=== PATIENT | female | born 1935 | race Caucasian/White ===

== ENCOUNTER 2023-08-04 08:56 | Inpatient (IN) ==
[2023-08-04] MEDS ORDERED: IOPAMIDOL 100 ML BOTTLE IV ONE (08:57)
[2023-08-04] MEDS: ADENOSINE 3 MG/ML VIAL IV ONE (09:24)
[2023-08-04 09:35] LABS: Basophils # (Auto) 0.07 K/mcL (0.00-0.30); Basophils % (Auto) 0.8 % (0.0-2.0); Eosinophils # (Auto) 0.09 K/mcL (0.00-0.70); Eosinophils % (Auto) 1.1 % (0.0-7.0); Hematocrit 49.1 % (34.1-44.9); Hemoglobin 15.7 g/dL (11.2-15.7); Lymphocytes # (Auto) 3.04 K/mcL (1.50-4.80); Lymphocytes % (Auto) 36.5 % (15.5-49.0); Mean Cell Volume 89.6 fL (80.0-100.0); Monocytes # (Auto) 0.43 K/mcL (0.10-0.90); Monocytes % (Auto) 5.2 % (1.0-12.0); Neutrophils % (Auto) 56.3 % (38.0-78.0); Platelet Count 272 K/mcL (140-440); RBC 5.48 M/mcL (3.59-5.38); WBC 8.3 K/mcL (4.5-11.0)
[2023-08-04 09:54] LABS: ALT/SGPT 10 U/L (<40); AST/SGOT 25 U/L (<32); Albumin 4.4 gm/dL (3.2-5.2); Albumin/Globulin Ratio 1.6 (1.0-2.3); Alkaline Phosphatase 69 U/L (39-117); Bilirubin,Total 0.4 mg/dL (0.1-1.0); Blood Urea Nitrogen 25 mg/dL (8-23); Calcium 9.4 mg/dL (8.6-10.4); Carbon Dioxide 24 mmol/L (22-30); Chloride 105 mmol/L (96-108); Globulin 2.8 gm/dL (2.2-3.7); Glomerular Filtration Rate 37; Glucose 125 mg/dL (70-105)
[2023-08-04 09:55] LABS: Thyroid Stimulating Hormone 2.66 uIU/mL (0.27-5.01)
[2023-08-04 10:25] LABS: Free T4 (Free Thyroxine) 1.35 ng/dL (0.93-1.70)
[2023-08-04] MEDS: AMIODARONE 150 MG/3 ML VIAL IV ONE (10:34)
[2023-08-04] MEDS: AMIODARONE 360 MG in PREMIX 1 BAG IV SCH ×2 (10:42→11:08)
[2023-08-04] MEDS: cefTRIAXone 2 GM in DEXTROSE 5% IN WATER 50 ML IV ONE (10:50)
[2023-08-04] MEDS: AZITHROMYCIN 250 MG TABLET PO ONE (10:50)
[2023-08-04] MEDS: DILTIAZEM 25 MG/5 ML VIAL IV ONE (11:08)
[2023-08-04] MEDS: ASPIRIN 81 MG TAB.CHEW CHEWED ONE (11:08)
[2023-08-04] MEDS: ONDANSETRON 4 MG/2 ML VIAL IV ONE (11:32)
[2023-08-04] MEDS ORDERED: IPRATROPIUM/ALBUTEROL 3 ML AMPUL.NEB NEB PRN (15:20)
[2023-08-04] MEDS ORDERED: POTASSIUM CHLORIDE 20 MEQ TABLET PO PRN ×2 (15:20)
[2023-08-04] MEDS ORDERED: POTASSIUM CHLORIDE 40 MEQ in DEXTROSE 5% IN WATER 500 ML IV PRN (15:20)
[2023-08-04] MEDS ORDERED: METOPROLOL TARTRATE 5 MG/5 ML VIAL IV PRN (15:20)
[2023-08-04] MEDS ORDERED: MAGNESIUM SULFATE 2 GM/50 ML BAG IV PRN (15:20)
[2023-08-04] MEDS ORDERED: ACETAMINOPHEN 325 MG TABLET PO PRN (15:20)
[2023-08-04] MEDS ORDERED: POLYETHYLENE GLYCOL 3350 17 GM PACKET PO PRN (15:20)
[2023-08-04] MEDS ORDERED: ONDANSETRON 4 MG/2 ML VIAL IV PRN (15:20)
[2023-08-04] MEDS: SUCRALFATE 1 GM/10 ML ORAL.SUSP PO SCH (16:07)
[2023-08-04 16:30] LABS: Prothrombin Time 13.5 sec (11.9-14.5)
[2023-08-04] MEDS: WARFARIN 2.5 MG TABLET PO SCH (16:50)
[2023-08-04] MEDS: AMIODARONE 360 MG/200 ML BAG IV ONE (17:12)
[2023-08-04] MEDS: FAMOTIDINE 20 MG TABLET PO SCH (20:13)
[2023-08-04] MEDS: METOPROLOL TARTRATE 25 MG TABLET PO SCH (20:13)
[2023-08-04] MEDS ORDERED: APIXABAN 2.5 MG TABLET PO SCH (21:00)
[2023-08-05] MEDS: AMIODARONE 360 MG/200 ML BAG IV ONE (03:55)
[2023-08-05] MEDS: 0.9 % SODIUM CHLORIDE 1,000 ML IV ONE (09:38)
[2023-08-05 09:46] LABS: Prothrombin Time 13.5 sec (11.9-14.5)
[2023-08-05 11:29] LABS: ALT/SGPT 7 U/L (<40); AST/SGOT 23 U/L (<32); Albumin 3.7 gm/dL (3.2-5.2); Albumin/Globulin Ratio 1.7 (1.0-2.3); Alkaline Phosphatase 53 U/L (39-117); Bilirubin,Direct < 0.2 mg/dL (0-0.3); Bilirubin,Total 0.1 mg/dL (0.1-1.0); Blood Urea Nitrogen 27 mg/dL (8-23); Calcium 8.6 mg/dL (8.6-10.4); Carbon Dioxide 24 mmol/L (22-30); Chloride 109 mmol/L (96-108); Globulin 2.2 gm/dL (2.2-3.7); Glomerular Filtration Rate 36; Glucose 81 mg/dL (70-105); Lactate Dehydrogenase 186 U/L (135-225); Phosphorous 3.8 mg/dL (2.5-4.5); Triglycerides 96 mg/dL (<150); Uric Acid 6.4 mg/dL (2.5-8.0)
[2023-08-05] MEDS: WARFARIN 5 MG TABLET PO SCH (14:13)
[2023-08-05] MEDS: 0.9 % SODIUM CHLORIDE 10 ML SYRINGE IV SCH (20:10)
[2023-08-05] MEDS: SENNOSIDES 1 TABLET PO PRN (20:10)
[2023-08-05] MEDS: ACETAMINOPHEN 500 MG TABLET PO PRN (23:52)
[2023-08-06 06:55] LABS: ALT/SGPT 26 U/L (<40); AST/SGOT 35 U/L (<32); Albumin 3.8 gm/dL (3.2-5.2); Albumin/Globulin Ratio 1.7 (1.0-2.3); Alkaline Phosphatase 58 U/L (39-117); Bilirubin,Direct < 0.2 mg/dL (0-0.3); Bilirubin,Total < 0.2 mg/dL (0.1-1.0); Blood Urea Nitrogen 28 mg/dL (8-23); Calcium 8.7 mg/dL (8.6-10.4); Carbon Dioxide 23 mmol/L (22-30); Chloride 108 mmol/L (96-108); Globulin 2.3 gm/dL (2.2-3.7); Glomerular Filtration Rate 37; Glucose 97 mg/dL (70-105); Lactate Dehydrogenase 210 U/L (135-225); Phosphorous 3.8 mg/dL (2.5-4.5); Triglycerides 114 mg/dL (<150); Uric Acid 5.9 mg/dL (2.5-8.0)
[2023-08-06 07:34] LABS: INR 0.9 (0.9-1.1)
[2023-08-06] MEDS: ASPIRIN 81 MG TAB.CHEW PO SCH (08:51)
[2023-08-06] MEDS ORDERED: WARFARIN 7.5 MG TABLET PO ONE (14:00)
== END 2023-08-06 12:50 | disposition home or self-care (01) | DRG 309 ==
LOC: ED 08:56 → ICU 15:14
PROVIDERS: ADMIT Internal Medicine; ATTEND Internal Medicine